=== PATIENT | female | born 1955 | race Caucasian/White ===

== ENCOUNTER → 2021-06-11 | Outpatient (CLI) | payer MEDICARE ==
--- NOTE | 2021-06-11 15:54 | BD ---
EXAMINATION TYPE: Axial Bone Density DATE OF EXAM: 06/11/2021 COMPARISON: NONE CLINICAL HISTORY: 65 YR OLD FEMALE....ICD-10 CODE: M81.0 OSTEOPOROSIS Height: 64.2 Weight: 107 FRAX RISK QUESTIONS: Family History (Parent hip fracture): YES RISK FACTORS HISTORY OF: Family History of Osteoporosis: YES, WITH BACK LOSS Diet low in dairy products/other sources of calcium: YES Postmenopausal woman: YES, AT AGE, 47 YRS OLD Lost more than 2 inches in height since high school: YES Frequent falls: USING CANE, UNSTEADY Hyperparathyroidism: NO Adrenal Insufficiency: NO MEDICATIONS: Osteoporosis Medications: YES, Additional Medications: STATIN FOR CHOLESTEROL, VIT D, CENTRUM , RELAXIFIN, Additional History: SCOLIOSIS, RELXIFEN, FOR PREVENTION OF BREAST CA, STUDY THROUGH [place] EXAM MEASUREMENTS: Bone mineral densitometry was performed using the [employer] System. Bone mineral density as measured about the Lumbar spine is: ----- L1-L4(G/cm2): 1.146 T Score Values are as follows: ----- L1: -0.3 ----- L2: -0.2 ----- L3: 0.0 ----- L4: -0.7 ----- L1-L4: -0.3 Bone mineral density FIRST DEXA STUDY, BASELINE STUDY Bone mineral density about the R hip (g/cm2): 0.970 Bone mineral density about the L hip (g/cm2): 1.046 T Score values are as follows: -----R Neck: -0.6 -----L Neck: -0.3 -----R Total: -0.3 -----L Total: 0.3 Bone mineral density BASELINE STUDY FRAX%S: THERE IS A 6.9% CHANCE FOR A MAJOR OSTEOPOROTIC FX AND A 0.4% FOR HIP.....PROBABILITY FOR FX IN 10 YRS TIME IMPRESSION: Normal bone mineral density. NOTE: T-SCORE=SD OF THE YOUNG ADULT MEAN.
== END | disposition home or self-care (01) ==
LOC: RADBDWWP 08:24
PROVIDERS: ATTEND Internal Medicine
DX: M81.0 Age-related osteoporosis without current pathological fracture (principal)
CPT/HCPCS: 77080

== ENCOUNTER → 2022-04-15 | Outpatient (CLI) | payer MEDICARE ==
--- NOTE | 2022-04-15 11:05 | CT ---
EXAMINATION TYPE: CT right knee - [facility] Protocol DATE OF EXAM: 04/15/2022 COMPARISON: None HISTORY: Pain in right knee, primary osteoarthritis, right knee CT DLP: 828.30 mGycm Automated exposure control for dose reduction was used. Contrast: None Technique: Left hip knee and ankle are evaluated with thin section imaging 1 mm thick sections for [facility] protocol. Reconstructed images in coronal and sagittal plane are reviewed through the joint spaces . FINDINGS: Note is made of some diverticular changes within the sigmoid colon. The femoral head articulates with the acetabulum. Some femoral head spurring is present. Left knee: No acute fracture is evident. Patellofemoral joint space has mild narrowing. Patellar spur ring is noted. There is narrowing of the medial compartment joint space. Medial femoral condylar and tibial plateau spurring is present. Note is also made of some lateral femoral condylar and tibial milena teau spurring. No large joint effusion is evident. Left ankle: No acute fractures are evident. Ankle mortise appears intact. IMPRESSION: 1. CT FOR [facility] PROTOCOL.
== END | disposition home or self-care (01) ==
LOC: RADCTMAIN 06:49
PROVIDERS: ATTEND Orthopaedic Surgery
DX: M17.11 Unilateral primary osteoarthritis, right knee (principal)

== ENCOUNTER → 2022-04-29 | Outpatient (CLI) | payer MEDICARE ==
[2022-04-29 12:37] LABS: Appearance,Urine Clear (Clear); Bilirubin,Urine Negative (Negative); Blood,Urine Small (Negative); Color,Urine Yellow; Glucose,Urine (UA) Negative (Negative); Ketones,Urine Negative (Negative); Leukocyte Esterase,Urine Negative (Negative); Mucus,Urine Rare /hpf; Nitrite,Urine Negative (Negative); Protein,Urine Negative (Negative); RBC,Urine 2 /hpf (0-5); Specific Gravity,Urine 1.017 (1.001-1.035); Urobilinogen,Urine <2.0 mg/dL (<2.0); WBC,Urine 1 /hpf (0-5)
[2022-04-29 12:54] LABS: INR 0.9 (<1.2); Partial Thromboplastin Time 23.9 sec (22.0-30.0); Prothrombin Time 10.1 sec (9.0-12.0)
[2022-04-29 18:33] LABS: HCT 44.1 % (37.2-46.3); MCH 28.3 pg (27.0-32.0); MCHC 31.7 g/dL (32.0-37.0); MCV 89.3 fL (80.0-97.0); Mean Platelet Volume 9.4 fL (9.5-12.2); NRBC Per 100 WBC 0 /100 WBCS (0.0-0.0); Platelet Count 252 X 10*3/uL (140-440); RBC 4.94 X 10*6/uL (4.10-5.20); RDW 13.2 % (11.5-14.5); WBC 6.79 X 10*3/uL (4.50-10.00)
[2022-04-29 19:21] LABS: African American GFR (CKD) 87.3 (60.0-200.0); Albumin 4.7 g/dL (3.8-4.9); Albumin/Globulin Ratio 2.11 (1.60-3.17); Anion Gap 12.3 mmol/L (10.00-18.00); BUN/Creat Ratio 20.91 Ratio (12.00-20.00); Calcium 9.9 mg/dL (8.7-10.3); Carbon Dioxide 24.7 mmol/L (20.0-27.5); Globulin 2.3 g/dL (1.6-3.3); Non-African American GFR(CKD) 75.3 (60.0-200.0); Potassium 4.6 mmol/L (3.5-5.5); Total Bilirubin 0.3 mg/dL (0.30-1.20)
== END | disposition home or self-care (01) ==
LOC: LABPAT 09:58
PROVIDERS: ATTEND Orthopaedic Surgery
DX: Z01.812 Encounter for preprocedural laboratory examination (principal)
CPT/HCPCS: 80053; 81001; 85027; 85610; 85730; 87070

== ENCOUNTER 2022-05-09 09:12 | Day surgery (SDC) | payer MEDICARE ==
[2022-05-07 09:30] VITALS: BMI 32.1
[~2022-05-09 09:12] MED LIST: ACETAMINOPHEN TAB 500 MG TAB PO PRN; DEXAMETHASONE SOD PHOSPHATE 10 MG/ML 1 ML VIAL IV PRN; DEXAMETHASONE SOD PHOSPHATE 4 MG/ML 1 ML VIAL IV ONE; DOCUSATE 100 MG CAP PO PRN; FAMOTIDINE 20 MG/2 ML VIAL IVP PRN; HYDROmorphone 0.5 MG/0.5 ML SYRINGE IVP PRN; KETOROLAC 15 MG/ML 1 ML VIAL IVP PRN; LACTATED RINGERS 1,000 ML IV SCH; LIDOCAINE 1% (10MG/ML) FOR IV START INTRADERMA PRN; MIDAZOLAM 2 MG/2 ML VIAL IV PRN; ONDANSETRON 4 MG/2 ML VIAL IVP PRN; ROPIVACAINE/EPI/CLONIDINE/KET 50 ML SYRINGE MISCELLANE PRN; TRANEXAMIC ACID IN NACL,ISO-OS 1,000 MG in SALINE 1 100ML.BAG IVPB PRN; oxyCODONE ER 10 MG TAB.ER.12H PO PRN
[2022-05-09] MEDS ORDERED: fentaNYL (PF) 50 MCG/ML 2 ML AMP IVP ONE (10:17)
[2022-05-09] MEDS ORDERED: MIDAZOLAM 2 MG/2 ML VIAL IVP ONE (10:17)
[2022-05-09] MEDS: ONDANSETRON 4 MG/2 ML VIAL IVP ONE ×2 (10:32→14:13)
[2022-05-09] MEDS ORDERED: DEXAMETHASONE SOD PHOSPHATE 4 MG/ML 1 ML VIAL IVP ONE (10:32)
[2022-05-09] MEDS ORDERED: ONDANSETRON 4 MG/2 ML VIAL IVP ONE (10:33)
[2022-05-09] MEDS ORDERED: PROPOFOL 10 MG/ML 20 ML VIAL IV ONE (10:47)
[2022-05-09] MEDS ORDERED: SUCCINYLCHOLINE CHLORIDE 100 MG/5 ML SYR IV ONE (10:47)
[2022-05-09] MEDS ORDERED: ROPIVACAINE 5 MG/ML 30 ML VIAL ONE (10:47)
[2022-05-09] MEDS ORDERED: SODIUM CHLORIDE 0.9% (PF) 10 ML VIAL ONE (10:47)
[2022-05-09] MEDS ORDERED: LIDOCAINE 2% INJ 20 MG/ML (2 ML VIAL) ONE (10:47)
[2022-05-09] MEDS ORDERED: TRANEXAMIC ACID IN NACL,ISO-OS 1,000 MG/100 ML BAG ONE (10:47)
[2022-05-09] MEDS ORDERED: MIDAZOLAM 2 MG/2 ML VIAL ONE (10:47)
[2022-05-09] MEDS ORDERED: fentaNYL (PF) 50 MCG/ML 2 ML AMP ONE (10:47)
[2022-05-09] MEDS ORDERED: ceFAZolin 3,000 MG in SODIUM CHLORIDE 0.9% IRRIGATIO 3,000 ML IRRIGATION ONE (11:30)
[2022-05-09] MEDS ORDERED: LACTATED RINGERS 1,000 ML IV ONE (11:53)
--- NOTE | 2022-05-09 12:39 | P.ANPRN ---
Procedure Note - Anesthesia - Nerve Block Performed Right Adductor Canal Time Out Performed: Yes (:16) Date of Procedure: 05/09/22 Procedure Start Time: Procedure Stop Time: Location of Patient: PreOp Indication: Acute Post-Operative Pain, Requested by Surgeon (Hernandez) Sedation Type: Sedate with meaningful contact maintained Preparation: Sterile Prep Position: Supine Catheter: None Needle Types: Pajunk Needle Gauge: 21 Ultrasound used to visualize needle placement: Yes Ultrasound used to observe medication spread: Yes Injectate: 0.5% Ropivacaine (see comment for volume) (15cc) Blood Aspirated: No Pain Paresthesia on Injection Noted: No Resistance on Injection: Normal Image Stored and Saved: Yes Events: Uneventful and Well Tolerated
--- NOTE | 2022-05-09 12:40 | P.ANPRN ---
Procedure Note - Anesthesia - Nerve Block Performed Right iPack Time Out Performed: Yes Date of Procedure: 05/09/22 Procedure Start Time: 10:24 Procedure Stop Time: 10:30 Location of Patient: PreOp Indication: Acute Post-Operative Pain, Requested by Surgeon (Dr Pickard) Sedation Type: Sedate with meaningful contact maintained Preparation: Sterile Prep Position: Supine Catheter: None Needle Types: Pajunk Needle Gauge: 21 Ultrasound used to visualize needle placement: Yes Ultrasound used to observe medication spread: Yes Injectate: 0.5% Ropivacaine (see comment for volume) (15cc + 5cc PF Normal saline) Blood Aspirated: No Pain Paresthesia on Injection Noted: No Resistance on Injection: Normal Image Stored and Saved: Yes Events: Uneventful and Well Tolerated
--- NOTE | 2022-05-09 13:22 | P.OP ---
Date of Procedure: 05/09/22 Preoperative Diagnosis: 1. Right knee osteoarthritis Postoperative Diagnosis: Same Procedure(s) Performed: Right total knee arthroplasty Implants: 1. Alpine triathlon size #3 CR femur 2. Tim triathlon size #3 universal tibial baseplate 3. Tim triathlon size #3, 12 mm CS polyliner 4. Tim triathlon 29 mm all poly-patellar button Anesthesia: JOSEA, regional Surgeon: [place] Pickard Card Punching Machine Operator #1: Saurabh Olivas Estimated Blood Loss (ml): 50 IV fluids (ml): 1,200 Pathology: none sent Condition: stable Disposition: PACU Indications for Procedure: The patient is a very pleasant 66-year-old female who failed over 1 year nonsurgical treatment for right knee arthritis. She presented to see me after failing an extensive course of nonsurgical treatment. She requested a right total knee arthroplasty. Her clinical exam and x-rays were consistent with severe arthritis. We discussed the potential risks and complications of an elective total knee replacement including but certainly not limited to risks from anesthesia, superficial infection, delayed wound healing, deep periprosthetic joint infection, stiffness, instability, loosening, tensor mechanism disruption, patellar maltracking, intraoperative or postoperative periprosthetic fracture, continued or worsened pain, and inability to regain preinjury level of function, generalized the satisfaction of surgical outcome, need for revision surgery, DVT, PE, other medical complications, and possibly loss of life or limb. The patient voiced her understanding of these potential complications and also acknowledges that other less common complications are possible. She provided both verbal and written consent to go forward with surgery. Operative Findings: Severe full-thickness cartilage loss medial and patellofemoral compartment and moderate cartilage loss in the lateral compartment Description of Procedure: The patient was identified in preoperative holding and the correct operative extremity was verified and marked with a marker. I reviewed the consent form with the patient at length. All of their questions were answered. The patient was given a block by anesthesia. They were then brought back to the operating room. They were transferred onto the operating room table where a general anesthetic, preoperative antibiotics, and tranexamic acid were administered by anesthesia. A tourniquet was applied to the proximal aspect of the operative extremity. The contralateral extremity was padded under the heel and secured to the operating room table with a nonsterile blue towel and tape. The ipsilateral arm was carefully draped across the patient's chest and secured with a pillow and foam. A post was applied over the lateral aspect of the ipsilateral thigh and a bolster was placed under the ipsilateral foot. I verified that the operative extremity was stable and the knee was flexed to 90. The operative extremity was then placed in a leg pena, nonsterile drapes were applied, and the extremity was prepped and draped sterilely in the standard sterile fashion. Prior to starting surgery timeout was performed identifying the correct patient, operative extremity, and procedure. The leg was then elevated, exsanguinated with an Esmarch bandage, and the tourniquet was inflated. An anterior midline incision was made sharply with a scalpel. Once I had dissected deep to the superficial fascial layer medial and lateral flaps were elevated. A medial parapatellar arthrotomy was created. Upon opening the knee joint there were diffuse arthritic changes in all 3 compartments. The anterior horn of the medial meniscus were sharply released and a medial release was performed around the posterior medial corner of the knee to facilitate retractor placement. The fat pad was excised with electrocautery. The patella was found to be severely arthritic and a provisional cut was made with a sagittal saw to facilitate mobilization of the extensor mechanism during the procedure. Remnants of the ACL and PCL were then excised from the notch. 4 mm pins were then placed within the incision in the medial distal femur and proximal tibia. Arrays were applied to the pins and I verified they were completely tightened. The knee was then registered with the [place] robot and manipulations in implant position were made to balance the knee and opitmize implant position. Using the Lester robotic saw all cuts were made in accordance with our plan. After all bony fragments had been removed the cuts were verified with the planar probe. The tibia was then subluxed forward and sized. The knee was brought into flexion and a lamina pathology collector was placed to allow removal of the meniscal remnants both medially and laterally as well as posterior osteophytes. Local anesthetic was then infiltrated around the joint capsule. Trial implants were then placed within the knee. Range of motion and collateral ligament tension was then evaluated. Adjustments in implant size and position were then made accordingly. Once the knee was felt to be appropriately balanced the Lester pins were removed. The patella was then recut, sized, and punched. A trial patellar button was then placed. With the trial components in place, the patella tracked midline. The femur was then drilled and the trial component removed. The trial tibial component was then appropriately rotated, pinned, and prepared for the keel. All trial components were then removed from the knee. The knee was thoroughly irrigated with pulsatile lavage. Cement was prepared via vacuum mixing in a bowl on the back table. I then hand pressurized cement into the femur and tibia and placed the implants beginning with the tibial base tray and poly liner, femoral component, and finally the patellar button. All extruded cement was removed including from the pin sites. Once the cement had hardened the knee was evaluated one final time with the final polyethylene liner in place. The knee had full extension and flexion and felt stable to varus and valgus stress throughout the arc of motion. The tourniquet was released and with the tourniquet down the patella tracked midline. All bleeders were controlled with electrocautery. The knee was then soaked for 3 minutes with a dilute Betadine soak. The knee was thoroughly irrigated using 3 L of sterile saline and pulsatile lavage. A deep drain was placed. The extensor mechanism was then reapproximated using pop off Vicryl sutures followed by a running barbed suture. The knee was then closed in layers with a 0 strata fix for the deep fascial layer, 2-0 strata fix for the superficial subcutaneous layer and Monocryl and Steri-Strips for the skin. A sterile dressing and drain sponge were applied. I verified that all instrument, sponge, and sharp counts were correct. The patient was then transferred off the operating room table, extubated, and brought to recovery having tolerated the procedure well. Saurabh Olivas PA-C was required as a skilled executive personal assistant due to the complexity of the procedure for patient positioning, draping, retraction, placement of hardware, and closure of wound. PLAN: The patient can weight-bear as tolerated on the operative extremity. DVT prophylaxis with aspirin 81 mg twice a day based on preoperative risk stratification. Follow-up in the office in 2 weeks for wound check and x-rays o f the knee including an AP and lateral.
[2022-05-09] MEDS ORDERED: hydrOXYzine pamoate 25 MG CAP PO PRN (13:27)
[2022-05-09] MEDS ORDERED: ONDANSETRON 4 MG/2 ML VIAL IVP PRN (13:27)
[2022-05-09] MEDS ORDERED: NALOXONE 0.4 MG/ML 1 ML VIAL IV PRN (13:27)
[2022-05-09] MEDS ORDERED: HYDROmorphone 0.5 MG/0.5 ML SYRINGE IVP PRN ×3 (13:27)
[2022-05-09] MEDS ORDERED: HYDROcodone/APAP 5-325MG 1 EACH TAB PO PRN ×2 (13:27)
[2022-05-09 13:54] VITALS: RESP 16
--- NOTE | 2022-05-09 13:54 | XR ---
EXAMINATION TYPE: XR knee limited RT DATE OF EXAM: 05/09/2022 COMPARISON: NONE TECHNIQUE: Two views submitted HISTORY: Post op FINDINGS: There is a prosthetic knee in near anatomic alignment. There is soft tissue edema and emphysema. IMPRESSION: 1. Postoperative change. Appears in near-anatomic alignment
[2022-05-09 15:58] VITALS: BP 110/70; PULSE 85; TEMP 98.2
[2022-05-09] MEDS ORDERED: ASPIRIN 81 MG PO SCH (21:00)
[2022-05-09] MEDS ORDERED: SENNOSIDES-DOCUSATE SODIUM 1 EACH TAB PO SCH (21:00)
== END 2022-05-09 19:05 | disposition home or self-care (01) ==
LOC: OR 09:12 → 4SSUR 14:22 → OR 19:05
PROVIDERS: ATTEND Orthopaedic Surgery
DX: M17.11 Unilateral primary osteoarthritis, right knee (principal); H40.9 Unspecified glaucoma; L40.9 Psoriasis, unspecified; R26.81 Unsteadiness on feet; L71.9 Rosacea, unspecified; R51.9 Headache, unspecified; Z97.3 Presence of spectacles and contact lenses; Z98.41 Cataract extraction status, right eye; Z87.891 Personal history of nicotine dependence; Z98.890 Other specified postprocedural states; Z82.49 Family history of ischemic heart disease and other diseases of the circulatory system; Z79.890 Hormone replacement therapy; Z79.899 Other long term (current) drug therapy; Z88.5 Allergy status to narcotic agent; Z88.2 Allergy status to sulfonamides
CPT/HCPCS: 27447; 97162; 64447; 64999; 76942; 73560; C1776; C1713; J2250; J1100; J0690 ×2; J2405; J3010; J2795; J1885; J0330; J2704; J1170; J2001

== ENCOUNTER 2022-07-02 10:59 | Day surgery (SDC) | payer MEDICARE ==
[~2022-07-02 10:59] MED LIST changes: -ACETAMINOPHEN TAB 500 MG TAB PO PRN; -DEXAMETHASONE SOD PHOSPHATE 10 MG/ML 1 ML VIAL IV PRN; -DEXAMETHASONE SOD PHOSPHATE 4 MG/ML 1 ML VIAL IV ONE; -DOCUSATE 100 MG CAP PO PRN; -FAMOTIDINE 20 MG/2 ML VIAL IVP PRN; -KETOROLAC 15 MG/ML 1 ML VIAL IVP PRN; -ONDANSETRON 4 MG/2 ML VIAL IVP PRN; +Pre Op ABX Message 1 EACH MISC MISCELLANE ONE; -ROPIVACAINE/EPI/CLONIDINE/KET 50 ML SYRINGE MISCELLANE PRN; -TRANEXAMIC ACID IN NACL,ISO-OS 1,000 MG in SALINE 1 100ML.BAG IVPB PRN; -oxyCODONE ER 10 MG TAB.ER.12H PO PRN
[2022-07-02] MEDS ORDERED: HYDROmorphone 0.5 MG/0.5 ML SYRINGE IVP PRN (11:11)
[2022-07-02] MEDS ORDERED: LACTATED RINGERS 1,000 ML IV SCH (11:11)
[2022-07-02] MEDS ORDERED: TRANEXAMIC ACID 1,000 MG in SODIUM CHLORIDE 0.9% 100 ML IVPB ONE (11:20)
[2022-07-02] MEDS ORDERED: PROPOFOL 10 MG/ML 20 ML VIAL IV ONE (12:15)
[2022-07-02] MEDS ORDERED: TRANEXAMIC ACID IN NACL,ISO-OS 1,000 MG/100 ML BAG ONE (12:15)
[2022-07-02] MEDS ORDERED: fentaNYL (PF) 50 MCG/ML 2 ML AMP ONE (12:15)
[2022-07-02] MEDS ORDERED: HYDROmorphone (PF) 1 MG/ML ONE (12:15)
[2022-07-02 12:44] VITALS: TEMP 97.3
--- NOTE | 2022-07-02 12:52 | P.OP ---
Date of Procedure: 07/02/22 Preoperative Diagnosis: 1. Right total knee replacement 7 weeks ago 2. Arthrofibrosis, right knee 3. History of superficial suture reaction, right knee Postoperative Diagnosis: Same Procedure(s) Performed: Closed manipulation of right knee status post total knee arthroplasty Anesthesia: [facility] [place] Surgeon: [place] Pickard Indications for Procedure: The patient is a very pleasant previously healthy 66-year-old female who 7 weeks ago underwent a right total knee replacement. Her postoperative course was complicated by a superficial reaction to her sutures at the distal extent of her incision at 3 weeks postoperatively. She had superficial breakdown but no deep infection. Her knee was aspirated and had less than 100 nucleated cells. Cultures were negative. Due to her superficial breakdown however physical therapy was stopped until the wound healed. As a result of this she developed stiffness in her right knee. I saw her in the office last week and she had full extension and flexion to 80. Since she did not have 90 of flexion at 6 weeks I recommended a manipulation the operating room. We discussed the potential risks and competitions of this at length. She provided consent to go forward with surgery. Operative Findings: Preoperatively the patient had full extension and flexion to 80. Following the manipulation she had full extension and flexion 120 limited by the soft tissue in her calf and thigh. Description of Procedure: The patient's identified in preop holding and the correct right leg was marked with my initials. I reviewed the consent form with the patient and her . All their questions were answered. The patient was then brought back to the operating room. A Mac anesthetic was administered by anesthesia. Prior to starting a timeout was performed identifying the correct patient, operative extremity, and procedure. Once the patient was under anesthesia she was left in the rredfield. Before manipulation she had full extension and flexion to 80 while under anesthesia. Once the patient was adequately sedated she was given an IV dose of tranexamic acid to help lower the chance of developing a postoperative hemarthrosis. Once this had been administered a gentle force was applied to the proximal third of the tibia slowly over 3 minutes. Gradually her knee flexed an d there was an audible cracking of adhesions. I was able to obtain 120 of flexion. Pictures were taken of the knee fully extended and flexed for documentation. The patient was then awoken from her anesthetic and brought to recovery having tolerated procedure well. Plan: The patient can discharge home as an outpatient. She was instructed to ice her knee and begin working on range of motion this afternoon. She'll start physical therapy tomorrow. She was also given a prescription for diclofenac.
[2022-07-02 13:18] VITALS: RESP 20
[2022-07-02 13:42] VITALS: BP 115/74; PULSE 91
== END 2022-07-02 13:55 | disposition home or self-care (01) ==
LOC: OR 10:59
PROVIDERS: ATTEND Orthopaedic Surgery
DX: M24.661 Ankylosis, right knee (principal); Z96.651 Presence of right artificial knee joint; M19.90 Unspecified osteoarthritis, unspecified site; Z88.5 Allergy status to narcotic agent; Z91.09 Other allergy status, other than to drugs and biological substances; Z79.899 Other long term (current) drug therapy; Z79.1 Long term (current) use of non-steroidal anti-inflammatories (NSAID); Z79.2 Long term (current) use of antibiotics; Z82.49 Family history of ischemic heart disease and other diseases of the circulatory system; Z83.6 Family history of other diseases of the respiratory system; Z80.3 Family history of malignant neoplasm of breast; Z80.52 Family history of malignant neoplasm of bladder; Z81.8 Family history of other mental and behavioral disorders; Z84.89 Family history of other specified conditions
CPT/HCPCS: 27570; J3010; J1170; J2704

== ENCOUNTER → 2024-12-29 | Outpatient (CLI) | payer MEDICARE ==
--- NOTE | 2024-12-29 10:32 | US ---
EXAMINATION TYPE: US carotid duplex BILAT DATE OF EXAM: 12/29/2024 COMPARISON: NONE CLINICAL INDICATION: Female, 69 years old with history of I65.23 OCCLUSION AND STENOSIS OF BILATERAL CAROTID; light headed stenosis Additional History: R42* Dizziness TECHNIQUE: Grayscale, color Doppler and spectral Doppler evaluation of the bilateral carotid systems and vertebral arteries. Indirect Doppler criteria was utilized. FINDINGS: EXAM MEASUREMENTS: RIGHT: Peak Systolic Velocity (PSV) cm/sec ----- Right CCA: 111 ----- Right ICA: 112 ----- Right ECA: 101 ICA/CCA ratio: 1.0 RIGHT: End Diastole cm/sec ----- Right CCA: 23.4 ----- Right ICA: 37 ----- Right ECA: 13 LEFT: Peak Systolic Velocity (PSV) cm/sec ----- Left CCA: 114 ----- Left ICA: 107 ----- Left ECA: 87.7 ICA/CCA ratio: .9 LEFT: End Diastole cm/sec ----- Left CCA: 19.9 ----- Left ICA: 33.6 ----- Left ECA: 11.5 VERTEBRALS (direction of flow): Right Vertebral: Antegrade Left Vertebral: Antegrade Rhythm: Normal NUTRITION TECHNICIAN NOTES: No significant stenosis seen Color Doppler imaging shows patency with blood flow throughout the carotid artery. Spectral waveforms are within normal limits. IMPRESSION: Right: No hemodynamically significant stenosis. Left: No hemodynamically significant stenosis. Criteria for Assigning % of Stenosis / Diameter reduction (Estimation based on the indirect measurements of the internal carotid artery velocities (ICA PSV). 1. Normal (no stenosis)=ICA PSV < 125 cm/s: ratio < 2.0: ICA EDV<40 cm/s. 2. Less than 50% stenosis=ICA PSV < 125 cm/s: ratio < 2.0: ICA EDV<40 cm/s. 3. 50 to 69% stenosis=ICA PSV of 125 to 230 cm/s: ration 2.0 ? 4.0: ICA EDV 40-100 cm/s. 4. Greater than 70% stenosis to near occlusion= ICA PSV > 230 cm/s: ratio > 4.0: ICA EDV > 100 cm/s. 5. Near occlusion= ICA PSV velocities may be low or undetectable: variable ratio and ICA EDV. 6. Total occlusion=unable to detect flow. [facility], , 12/29/2024 10:30 AM
== END | disposition home or self-care (01) ==
LOC: RADUSWWP 09:36
PROVIDERS: ATTEND Internal Medicine
DX: I65.23 Occlusion and stenosis of bilateral carotid arteries (principal)
CPT/HCPCS: 93880

== ENCOUNTER → 2025-03-22 | Outpatient (CLI) | payer MEDICARE | END | disposition home or self-care (01) | LOC: LABWHC1 08:32 | PROVIDERS: ATTEND Dermatology | DX: L40.0 Psoriasis vulgaris (principal); L21.8 Other seborrheic dermatitis; Z79.899 Other long term (current) drug therapy | CPT/HCPCS: 36415; 86480 ==